=== PATIENT | male | born 1965 | race Caucasian/White ===

== ENCOUNTER → 2017-02-10 | Outpatient (CLI) | payer OTHER | LOC: KOH-I 15:57 | DX: M54.5 Low back pain (principal) | CPT/HCPCS: 72110 ==

== ENCOUNTER → 2017-02-26 | Outpatient (CLI) | payer OTHER | LOC: KOH-I 12:00 | DX: R10.814 Left lower quadrant abdominal tenderness (principal); M54.5 Low back pain | CPT/HCPCS: 72192 ==

== ENCOUNTER 2017-04-08 17:03 | Emergency (ER) | payer OTHER ==
[2017-04-08 18:17] LABS: HEMOGLOBIN 15.8 gm/dl (14.0-17.5); RED BLOOD COUNT 4.72 M/UL (4.20-5.50); WHITE BLOOD COUNT 6.7 K/UL (4.5-11.0)
[2017-04-08 18:38] LABS: BUN/CREATININE RATIO 33 (0-10)
== END 2017-04-08 21:15 | disposition home or self-care (01) ==
LOC: ER1 17:03
PROVIDERS: Specialist/Technologist Athletic Trainer
DX: S20.212A Contusion of left front wall of thorax, initial encounter (principal); E11.65 Type 2 diabetes mellitus with hyperglycemia; R91.1 Solitary pulmonary nodule; R79.89 Other specified abnormal findings of blood chemistry; I48.91 Unspecified atrial fibrillation; I25.10 Atherosclerotic heart disease of native coronary artery without angina pectoris; W10.9XXA Fall (on) (from) unspecified stairs and steps, initial encounter; Z79.4 Long term (current) use of insulin; Z79.899 Other long term (current) drug therapy
CPT/HCPCS: 36415; 71020; 71250; 80053; 82550; 82553; 83874; 84484; 85025; 93005; 96374; 99285; J1885

== ENCOUNTER 2022-02-20 13:56 | Emergency (ER) | payer OTHER | END 2022-02-20 15:09 | disposition home or self-care (01) | LOC: ER1 13:56 | DX: H53.9 Unspecified visual disturbance (principal); E11.9 Type 2 diabetes mellitus without complications; I48.91 Unspecified atrial fibrillation | CPT/HCPCS: 82962; 99284 ==

== ENCOUNTER 2022-05-08 18:50 | Emergency (ER) | payer OTHER, MEDICAID ==
[2022-05-08 19:24] LABS: HEMOGLOBIN 15.6 gm/dl (14.0-17.5); RED BLOOD COUNT 4.75 M/UL (4.20-5.50)
[2022-05-08 19:36] LABS: BUN/CREATININE RATIO 22 (0-10)
[2022-05-08] MEDS ORDERED: AMOXICILLIN500 MG PO (21:13)
== END 2022-05-08 21:47 | disposition home or self-care (01) ==
LOC: ER1 18:50
PROVIDERS: Preventive Medicine Occupational Medicine
DX: S01.511A Laceration without foreign body of lip, initial encounter (principal); S63.611A Unspecified sprain of left index finger, initial encounter; S00.83XA Contusion of other part of head, initial encounter; J44.9 Chronic obstructive pulmonary disease, unspecified; E11.9 Type 2 diabetes mellitus without complications; V49.9XXA Car occupant (driver) (passenger) injured in unspecified traffic accident, initial encounter; Y92.410 Unspecified street and highway as the place of occurrence of the external cause
CPT/HCPCS: 70450; 70486; 71045; 71260; 72125; 72170; 80053; 80307; 81001; 83605; 85025; 85610; 86850; 86900; 86901; 96374; 99284; G0480; J1170; Q9967